=== PATIENT | female | born 1975 | race Caucasian/White ===

== ENCOUNTER 2016-05-15 20:46 | Emergency (ER) | payer OTHER ==
[~2016-05-15] VITALS: Ht 162.6 cm; Wt 102.0 kg
[~2016-05-15 20:46] MED LIST: CALC-649 PO; FERR27TA PO; PREN-39 PO
[2016-05-15 20:48] VITALS: Ht 162.6 cm; Wt 102.0 kg
--- NOTE | 2016-05-15 23:59 | ERD ---
ER Documentation Chief Complaint Date/Time DATE: 05/15/16 TIME: 23:56 Chief Complaint left ankle pain after falling from bus at 1800 tonight, denies LOC HPI This is a 40-year-old female who presents to emergency department today complaining of left foot and ankle pain after falling down some stairs while going down the stairs on the bus earlier this evening. Denies any previous trauma. She has not taken any medication for the pain. States she is able to ambulate however she is limping. ROS All systems reviewed and are negative except as per history of present illness. Medications Home Meds Active Scripts Naproxen* (Naprosyn*) 500 Mg Tablet, 500 MG PO BID Y for PAIN AND/OR INFLAMMATION, #30 TAB Prov:STELLA GOMEZ PA-C 05/16/16 Hydrocodone/Acetaminophen ([place] 10-325 Tablet) 1 Each Tablet, 1 TAB PO Q6H Y for PAIN, #15 TAB Prov:STELLA GOMEZ PA-C 05/16/16 Reported Medications Calcium Carbonate (Calcium) 1 Tab Tablet, 1 TAB PO DAILY 06/15/11 Ferrous Sulfate (Iron) 1 Tab Tablet, 1 TAB PO DAILY 06/15/11 Vits W-Ca,Fe,Fa(<1MG) ( Vitamins) 1 Tab Tablet, 1 TAB PO DAILY 06/15/11 Allergies Allergies: Coded Allergies: No Known Allergy (Unverified , 06/15/11) PMhx/Soc Medical and Surgical Hx: pt denies Medical Hx, pt denies Surgical Hx Hx Alcohol Use: No Hx Substance Use: No Physical Exam Vitals Vital Signs Date Time Temp Pulse Resp B/P Pulse Ox O2 Delivery O2 Flow Rate FiO2 05/15/16 20:48 98.5 108 20 141/92 96 Physical Exam Const: Obese, sitting in wheelchair, no acute distress Head: Atraumatic Eyes: Normal Conjunctiva ENT: Normal External Ears, Nose and Mouth. Neck: Full range of motion..~ No meningismus. Resp: Clear to auscultation bilaterally Cardio: Regular rate and rhythm, no murmurs Abd: Soft, non tender, non distended. Normal bowel sounds Skin: No petechiae or rashes Back: No midline or flank tenderness MSK: [place] ankle with no obvious deformity. Mild effusion over medial and lateral malleolus and dorsum of foot. Pulses 2+. Distal neurovascularly intact. Unable to assess range of motion secondary to pain. Neur: Awake and alert Psych: Normal Mood and Affect Results 24 hrs Current Medications Medications (Trade) Dose Ordered Sig/[place] Route PRN Reason Start Time Stop Time Status Last Admin Dose Admin Acetaminophen/ Hydrocodone Bitart ([place] (10)) 1 tab ONCE ONCE PO 05/16/16 00:00 05/16/16 00:01 DC 05/16/16 00:41 DIAGNOSTIC IMAGING REPORT Patient: YOVANY TAVAREZ : 1975 Age: 40 Sex: F MR #: [id number] DOS: 05/15/16 2229 Ordering MD: VAISHALI HALE MD Location: [facility] Room/Bed: PROCEDURE: Left ankle. CLINICAL INDICATION: Pain. TECHNIQUE: Three views including AP, lateral and oblique views of the left ankle were performed. COMPARISON: None. FINDINGS: There is no fracture, dislocation or bone destruction. The ankle mortise is within normal limits. Bone mineralization is within normal limits. There is no radiopaque foreign body or abnormal calcification. There is lateral soft tissue swelling. IMPRESSION: No evidence of fracture. Lateral soft tissue swelling. .Melecio Villarreal MD, MD Date Time Electronically viewed and signed by .Melecio Villarreal MD, MD on 05/16/2016 01:33 .T/ CC: VAISHALI HALE Patient: YOVANY TAVAREZ : 1975 Age: 40 Sex: F MR #: [id number] DOS: 05/15/16 0000 Ordering MD: STELLA GOMEZ PA-C Location: [facility] Room/Bed: PROCEDURE: Left foot. CLINICAL INDICATION: Pain. TECHNIQUE: Three views including AP, lateral and oblique views of the left foot were obtained. The images were reviewed on a PACS workstation. COMPARISON: None. FINDINGS: There is no fracture, dislocation or bone destruction. The joint spaces are within normal limits. Bone mineralization is within normal limits. There is no radiopaque foreign body or abnormal calcification. IMPRESSION: No evidence of fracture. .Melecio Villarreal MD, MD Date Time Electronically viewed and signed by .Melecio Villarreal MD, MD on 05/16/2016 01:33 .T/ CC: STELLA GOMEZ PA-C Procedures/MDM This is a 40-year-old female who presents to the emergency department today complaining of left foot and ankle pain after falling down the stairs on the bus earlier this evening. On physical exam patient did have some effusion over her medial and lateral malleolus and dorsum of her foot and therefore did not obtain imaging. Per the radiology report raises of the foot and ankle show no evidence of acute fracture or dislocation. Joint spaces are well maintained. There is lateral soft tissue swelling on the left ankle. Symptoms at this time consistent with sprain versus strain versus contusion. Patient was given [place] here in the emergency department. I will give her a short course for home as well as Naprosyn. She was also given crutches to help ambulate. She was also given an [place] wrap. At this time the patient is stable for discharge and outpatient management. Patient should follow up with their PCP in the next 1-2 days. They may return to the emergency department sooner for any persistent or worsening of symptoms. Patient understood and agreed with the plan. Departure Diagnosis: Primary Impression: Ankle injury Encounter type: initial encounter Laterality: left Qualified Code: S99.912A - Ankle injury, left, initial encounter Condition: Fair STELLA GOMEZ PA-C May 15, 2016 23:58
[2016-05-16] MEDS ORDERED: HYDROCODONE/APAP (10/325) TAB PO ONE
--- NOTE | 2016-05-16 01:33 | RADRPT ---
PROCEDURE: Left foot. CLINICAL INDICATION: Pain. TECHNIQUE: Three views including AP, lateral and oblique views of the left foot were obtained. T he images were reviewed on a PACS workstation. COMPARISON: None. FINDINGS: There is no fracture, dislocation or bone destruction. The joint spaces are within normal limits. Bone mineralization is within normal limits. There is no radiopaque foreign body or abnormal calcif ication. IMPRESSION: No evidence of fracture. .Melecio Villarreal MD, Date Time Electronically viewed and signed by .Melecio Villarreal MD, MD on 05/16/2016 01:33 .T/
--- NOTE | 2016-05-16 01:33 | RADRPT ---
PROCEDURE: Left ankle. CLINICAL INDICATION: Pain. TECHNIQUE: Three views including AP, lateral and oblique views of the left ankle were performed. COMPARISON: None. FINDINGS: There is no fracture, dislocation or bone destruction. The ankle mortise is within normal limits. Bone mineralization is within normal limits. There is no radiopaque foreign body or abnormal calcif ication. There is lateral soft tissue swelling. IMPRESSION: No evidence of fracture. Lateral soft tissue swelling. .Melecio Villarreal MD, MD Date Time Electronically viewed and signed by .Melecio Villarreal MD, on 05/16/2016 01:33 .T/
[2016-05-16] MEDS ORDERED: HYDR-902 PO (01:48)
[2016-05-16] MEDS ORDERED: NAPR-260 PO (01:49)
[2016-05-16 02:04] VITALS: BP 111/56; PULSE 100; RESP 20; TEMP 98.8
== END 2016-05-16 02:08 | disposition home or self-care (01) ==
LOC: FTE 20:46
DX: S99.912A Unspecified injury of left ankle, initial encounter (principal); V78.4XXA Person boarding or alighting from bus injured in noncollision transport accident, initial encounter
CPT/HCPCS: 73610; 73630; Z7502; Z7610